=== PATIENT | male | born 1960 | race Caucasian/White ===

== ENCOUNTER 2018-05-21 13:17 | Emergency (ER) | payer BC ==
[~2018-05-21] VITALS: Ht 182.9 cm; Wt 129.5 kg
[~2018-05-21 13:17] MED LIST: ASPIRIN LOW81 M1 PO; ENALAPRIL2.5 MG PO; FLEXERIL PO; GLIMEPIRIDE4 MG PO; LOVASTATIN10 M1 PO; METFORMIN1000 MG PO; METFORMIN500 MG PO; NAPROSYN500 MG PO; NORCO1 TA1 PO
[2018-05-21 14:37] VITALS: BP 141/97
[2018-05-21] MEDS ORDERED: KEFLEX500 M1 PO (14:38)
[2018-05-21] MEDS ORDERED: CIPROFLOXACN500 MG PO (14:38)
== END 2018-05-21 14:54 | disposition home or self-care (01) | DRG 605 ==
LOC: ED 13:17
DX: S91.331A Puncture wound without foreign body, right foot, initial encounter (principal); L08.9 Local infection of the skin and subcutaneous tissue, unspecified; B96.5 Pseudomonas (aeruginosa) (mallei) (pseudomallei) as the cause of diseases classified elsewhere; W45.0XXA Nail entering through skin, initial encounter; Y93.01 Activity, walking, marching and hiking; Y92.89 Other specified places as the place of occurrence of the external cause

== ENCOUNTER 2020-04-02 07:39 | Emergency (ER) | payer OTHER, BC ==
[~2020-04-02] VITALS: Ht 182.9 cm; Wt 120.0 kg
[~2020-04-02 07:39] MED LIST changes: +CIPROFLOXACN500 MG PO; +KEFLEX500 M1 PO
[2020-04-02] MEDS ORDERED: JARDIANCE10 MG (08:05)
[2020-04-02] MEDS ORDERED: FLEXERIL5 M1 PO (09:28)
[2020-04-02 09:31] VITALS: BP 146/94
== END 2020-04-02 09:43 | disposition home or self-care (01) | DRG 552 ==
LOC: ED 07:39
DX: S16.1XXA Strain of muscle, fascia and tendon at neck level, initial encounter (principal); S80.02XA Contusion of left knee, initial encounter; S80.01XA Contusion of right knee, initial encounter; E11.9 Type 2 diabetes mellitus without complications; V43.52XA Car driver injured in collision with other type car in traffic accident, initial encounter; Z79.84 Long term (current) use of oral hypoglycemic drugs; Z96.653 Presence of artificial knee joint, bilateral

== ENCOUNTER 2024-08-25 10:56 | Emergency (ER) | payer OTHER ==
[~2024-08-25] VITALS: Ht 182.9 cm; Wt 104.0 kg
[~2024-08-25 10:56] MED LIST changes: +COZAAR100 MG PO; +ELIQUIS5 MG PO; +FLEXERIL5 M1 PO; +JARDIANCE10 MG; +LOPRESSOR 550 MG/TAB PO; +TRULICITY4.5 MG/0.5 PO; +[UNRECOGNIZED DRUG - OTHER] PO
[2024-08-25] MEDS ORDERED: MOUNJARO5 M1 SC (11:08)
[2024-08-25] MEDS ORDERED: PROTONIX20 MG PO (11:09)
[2024-08-25] MEDS ORDERED: METHOCARBAMOL 500 MG/TAB PO ONE (11:25)
[2024-08-25] MEDS ORDERED: CYCLOBENZAPRINE HCL 5 MG TAB PO ONE (12:40)
[2024-08-25] MEDS ORDERED: IBUPROFEN 600 MG/TAB PO ONE (12:40)
[2024-08-25] MEDS ORDERED: FLEXERIL5 M1 PO (14:01)
[2024-08-25 14:03] VITALS: BP 146/92
== END 2024-08-25 14:10 | disposition home or self-care (01) | DRG 552 ==
LOC: ED 10:56
DX: M54.6 Pain in thoracic spine (principal); M62.830 Muscle spasm of back; E11.9 Type 2 diabetes mellitus without complications; I11.0 Hypertensive heart disease with heart failure; I50.9 Heart failure, unspecified; Z91.81 History of falling; Z98.890 Other specified postprocedural states